=== PATIENT | female | born 1960 | race Caucasian/White ===

== ENCOUNTER 2016-12-26 08:08 | Day surgery (SDC) | payer BC ==
[~2016-12-26 08:08] MED LIST: Midazolam 1 MG/ML 2 ML SDV ONE; Propofol 200 MG/20 ML SDV ONE; fentaNYL 100 MCG/2 ML SDV ONE
[2016-12-26] MEDS ORDERED: Sodium Chloride 0.9% 1,000 ML IV SCH (08:45)
[2016-12-26 11:25] VITALS: BP 114/69
--- NOTE | 2016-12-27 08:05 | OR ---
DATE OF PROCEDURE: 12/26/2016 PROCEDURE: Colonoscopy. FINDINGS: 1. Very mild inflammation/plaque-like area of the ascending colon (biopsied x1 using cold biopsy forceps). 2. Other gross abnormalities. COMPLICATIONS: None. COMPLIANCE QUALITY PERFORMANCE ANALYST: None. ANESTHESIA: MAC. PREOPERATIVE DIAGNOSIS: Screening colonoscopy. POSTOPERATIVE DIAGNOSIS: Screening colonoscopy. RISKS: Risks, benefits, alternatives, limitations including, but not limited to infection, bleeding, and perforation were explained to the patient and wished to proceed. PROCEDURE IN DETAIL: The patient was placed in left lateral decubitus position. Digital rectal exam was performed without abnormality. The scope was introduced and advanced atraumatically to the ileocecal valve. The scope was brought back to the ascending, transverse, descending colon, and retroflexed. In the ascending colon, there was a plaque-like area in the ascending colon, which was biopsied x1 using cold biopsy forceps. No abnormalities and retroflexed. The patient tolerated the procedure well. Pastor Live MD /[id number]
== END 2016-12-26 11:38 | disposition home or self-care (01) ==
LOC: JP.SDS 08:08
PROVIDERS: ATTEND Surgery
PROC: 0DBK8ZX Excision of Ascending Colon, Via Natural or Artificial Opening Endoscopic, Diagnostic (ICD-10-PCS; principal; 2016-12-26)
DX: Z12.11 Encounter for screening for malignant neoplasm of colon (principal)
CPT/HCPCS: 45380; J2250; J2704; J3010; J7040; 88305

== ENCOUNTER 2025-04-04 07:17 | Day surgery (SDC) | payer BC ==
[2025-04-04] MEDS ORDERED: Propofol 200 MG/20 ML SDV ONE (07:23)
[2025-04-04] MEDS ORDERED: Midazolam 1 MG/ML 2 ML SDV ONE (07:23)
[2025-04-04] MEDS ORDERED: fentaNYL 50 MCG/ML SDV ONE (07:23)
[2025-04-04] MEDS: Lactated Ringers 1,000 ML IV SCH (07:48)
[2025-04-04 09:32] VITALS: BP 138/75; PULSE 85
[2025-04-04] MEDS ORDERED: Glycopyrrolate 0.2 MG/ML 5 ML MDV ONE (09:32)
== END 2025-04-04 09:46 | disposition home or self-care (01) ==
LOC: JP.SDS 07:17
PROVIDERS: ATTEND Surgery
DX: Z12.11 Encounter for screening for malignant neoplasm of colon (principal); K63.5 Polyp of colon; K57.30 Diverticulosis of large intestine without perforation or abscess without bleeding; Z86.0100 Personal history of colon polyps, unspecified
CPT/HCPCS: 00811; 45385; J1596; J2250; J2704; J3010; J7120; 88305